=== PATIENT | male | born 1960 | race Caucasian/White ===

== ENCOUNTER 2018-10-04 04:02 | Outpatient (CLI) | payer BC, MEDICAID, SELFPAY ==
[2018-10-06 09:36] LABS: PSA, Diagnostic 0.3 ng/ml (0-3.5)
== END 2018-10-04 04:22 ==
PROVIDERS: PCP Family Medicine; Visit Provider Urology
DX: R39.89 Other symptoms and signs involving the genitourinary system (principal)
CPT/HCPCS: 36415; 84153

== ENCOUNTER 2019-10-02 02:59 | Outpatient (CLI) | payer BC, MEDICAID, SELFPAY ==
[2019-10-05 11:05] LABS: PSA, Diagnostic 0.3 ng/mL (0.0-4.5)
== END 2019-10-02 03:19 ==
PROVIDERS: PCP Family Medicine; Visit Provider Urology
DX: N42.89 Other specified disorders of prostate (principal)
CPT/HCPCS: 36415; 84153

== ENCOUNTER 2020-10-04 15:28 | Emergency (ER) | payer OTHER, BC, MEDICAID, SELFPAY ==
--- NOTE | 2020-10-04 15:30 | DI.CT_ITS ---
Exam(s) CT LOWER EXTREMITY RT CTA EXAM: CT LOWER EXTREMITY RT CTA CLINICAL HISTORY: severe torquing of R knee.. TECHNIQUE: Imaging Protocol: Axial CT angiography was performed with multi-slice acquisition and mu lti-planar and/or 3D reconstructions. CONTRAST MATERIAL: Intravenous: Omnipaque 350 Contrast volume:150 Oral: No COMPARISON: No exams were available for comparison FINDINGS: Vascular Structures: Abdomen: Distal aorta: No aneurysm. No dissection. No occlusion or significant stenosis. Pelvis: Iliac Arteries: No occlusion or significant stenosis. Common Femoral Arteries: No occlusion or significant stenosis. Lower extremities: Right lower extremity: Common Femoral: No evidence of occlusion or significant stenosis. No dissection. Superficial Femoral: No evidence of occlusion or significant stenosis. Popliteal: No evidence of occlusion or significant stenosis. No dissection. Knee Trifurcation: No evidence of occlusion or significant stenosis. Posterior Tibial: No evidence of stenosis. Dorsalis Pedis: No evidence of stenosis. Bladder: Symmetric distention, no gross wall thickening. Reproductive organs: Unremarkable. Visualized bowel: No obstruction or bowel wall thickening. Peritoneal cavity: No ascites, collection or mesenteric inflammatory response. Bones: Within normal limits. Degenerative changes in the visualized portions of the lumbosacral spine and the right knee. Small right knee joint effusion. Soft tissues: Subcutaneous varicose veins are seen bilaterally. Mild edema is seen in the soft tissu es anterior to the right knee. IMPRESSION: No evidence of vascular injury. RADIATION DOSE DELIVERED: 1,196.78mGy.cm Total DLP DATA REPOSITORY: All CT scans at this facility are submitted to the National Radiology Data Registry (NRDR) Dose Index Registry (DIR) with the [employer] (ACR). RADIATION OPTIMIZATION: All CT scans at this facility use at least one of these dose optimization te chniques: automated exposure control; mA and/or kV adjustment per patient size (includes targeted exa ms where dose is matched to clinical indication); or iterative reconstruction.
[2020-10-04 15:31] VITALS: BP 179/99; PULSE 96; RESP 20; TEMP 36.7; O2SAT 95
--- NOTE | 2020-10-04 16:03 | W.ED.GENAD ---
Discharge Plan Disposition Patient Disposition: HOME Condition: Good Discharge Details Clinical Impression: Muscle strain of right knee Primary Care Provider: Rocio Mao ED Provider: Nathanael Mancuso Home Meds and New Rx's Prescriptions: No Action No Known Home Meds RF: 0 Discharge Instructions Instructions: Muscle Strain (ED) Additional Instructions: At this time there is no evidence of fracture for your knee or rupture or damage to your vessels. I suspect you have notably strained and/or possibly torn your muscles in the back of your thigh. Please use the knee immobilizer as needed for pain. Please try to stay off of your knee and remain nonweightbearing as tolerated. If you feel that you can get by with just the crutches and an Dony wrap that would be reasonable as well. Please take a daily aspirin. Please use ice, Tylenol and Motrin to help control the pain. Please follow-up closely with the compliance review specialist. We have placed a referral, and they should contact you for the appointment. If you notice any worsening of your symptoms, or any new symptoms such as vomiting, diarrhea, fever, chills, shortness of breath, chest pain, numbness, weakness, or fainting , please return immediately to the emergency department for reevaluation. Please follow up with your primary care provider as soon as possible for reassessment and reevaluation. As always, it was a pleasure participating in your medical care today. Referrals: Rocio Mao MD [Primary Care Provider] - Ferny Healy MD [ [facility] STAFF PHYSICIAN] - Discharge Data Discharge Date/Time-TO BE ENTERED AT DEPARTURE: 10/04/20 18:24 Medical Decision Making This is a 60-year-old male with no significant past medical history who is brought by EMS for evaluation of right knee pain. Patient works at the local [employer], there was a rock that was stuck, and he had his foot wedged under that purposefully. It was not crushed. Unfortunately while his foot was under that he fell into a 6 foot hole causing him to do a split, and his foot remained stuck during the entire episode. The patient had to crawl out. He was unable to bear weight on his right leg. He is not certain if there was any dislocation. When he is not moving he has no pain in his knee, but he does have pain when bearing weight or flexing the knee. He denies any numbness or tingling. He is not on any blood thinners. He did get 1000 mg of Tylenol by EMS. No other complaints at this time. He denies any trauma anywhere else to his other legs, his groin, his chest abdomen or pelvis. Demonstrates a normal neurovascular exam for the right lower extremity, no evidence of trauma anywhere over the rest of the body aside for tenderness the posterior aspect of the right knee. Knee itself is stable to varus and valgus stressing as well as anterior and posterior drawer testing. No bony tenderness. With flexion of the knee the patient demonstrates notable pain in the posterior musculature of the thigh. With the notable amount of strain that was placed on the knee, I am concerned for a hyperextension injury potentially causing vascular injury. Differential is also high for partial muscle belly rupture of the right lower extremity posterior thigh. Will get CTA to evaluate for arterial injury. Patient does not want anything else for pain at this time. We will monitor closely and reassess. [address] scan has returned, and per radiology no signs of acute vascular injury or other acute process. Patient remained stable. Pain more tolerable now. Patient will be given a knee immobilizer to use as needed, and crutches. Suspect notable strain and potential partial tear of posterior thigh knee flexor group. Patient remains neurovascularly intact. Recommend conservative therapy to start with rest, ice, Tylenol, Motrin, and nonweightbearing with gradual transition to weightbearing as tolerated. Recommend that if he does not have improvement of his symptoms after 7 to 10 days of this he may need further evaluation by an compliance review specialist. We will place an orthopedic consult. At this time there is no evidence of tibial plateau fracture, arterial injury, neurovascular compromise of significance. I have extensively reviewed the treatment plan and discharge instructions with the patient and their family. I have addressed all patient concerns at this time. The patient and family was made aware of what symptoms to monitor for that would warrant a return to the emergency department. Discussed the plan with the patient and family, they demonstrate verbal understanding and agreement with our assessment and plan at this time. The documentation in this chart was dictated using [employer] dictation software. Please excuse any dictation errors. FINDINGS: Right femoral/popliteal arteries: No occlusion or significant stenosis. No dissection. Right infrapopliteal arteries: No occlusion or significant stenosis. Three vessel runoff. Superficial veins: There are subcutaneous varicose veins seen bilaterally. Bones/joints: Incidental osteoarthritis of the right knee. No fracture. Soft tissues: There is an mild subcutaneous edema anterior to the patellar tendon. No intramuscular hematoma. No significant soft tissue bruising. Mild knee effusion. IMPRESSION: No evidence of vascular injury. Dictated and Authenticated by: Justice Mcadams MD. HPI General Date/Time Provider Initiated Documentation: 10/04/20 15:28. HPI Narrative: This is a 60-year-old male with no significant past medical history who is brought by EMS for evaluation of right knee pain. Patient works at the local [employer], there was a rock that was stuck, and he had his foot wedged under that purposefully. It was not crushed. Unfortunately while his foot was under that he fell into a 6 foot hole causing him to do a split, and his foot remained stuck during the entire episode. The patient had to crawl out. He was unable to bear weight on his right leg. He is not certain if there was any dislocation. When he is not moving he has no pain in his knee, but he does have pain when bearing weight or flexing the knee. He denies any numbness or tingling. He is not on any blood thinners. He did get 1000 mg of Tylenol by EMS. No other complaints at this time. He denies any trauma anywhere else to his other legs, his groin, his chest abdomen or pelvis. Related Data Home Medications Medication Instructions Recorded Confirmed Unknown [No Known Home Meds] 10/09/18 10/04/20 Allergies Allergy/AdvReac Type Severity Reaction Status Date / Time No Known Allergies Allergy Unverified 10/04/20 15:36 General Stated Complaint: Trauma DOUG: 3 Review of Systems All systems reviewed & are unremarkable except as noted in HPI and below [facility] Family History Mother Diabetes Father Neoplasm PROSTATE Sister No problems noted. Sister No problems noted. Grandfather No problems noted. Grandfather Neoplasm Grandmother No problems noted. Grandmother No problems noted. Social History Smoking/Tobacco Use Status: Never Smoking risk assessment performed?: Yes Alcohol Intake: never Drug use: Never Substance use type: does not use Do you feel safe at home: Yes Do you feel safe in your relationship?: Yes Exam Narrative Exam Narrative: 1.Const: Well-nourished, Well-developed, appearing stated age 2.Eyes: PERRL, no conjunctival injection, and symmetrical lids. 3.ENT: Atraumatic external nose and ears. Moist MM. Neck: Symmetric, trachea midline, No thyromegaly. 4.CVS: +S1/S2, No murmurs or gallops. Peripheral pulses 2+ and equal in all extremities. Brisk capillary refill in all extremities. 5.RESP: Unlabored respiratory effort. Clear to auscultation bilaterally. No wheezes rales or rhonchi 6.GI: Soft, Nontender/Nondistended, No hepatosplenomegaly. No guarding or rebound. 7.MSK: Upper extremities demonstrate no signs of trauma, show normal movements, and have a normal vascular exam. Left lower extremity: Unremarkable, no tenderness, normal movement and strength for all directions of the hip knee and foot. Normal sensation. Normal neurovascular exam Right lower extremity: No pain or tenderness to the anterior lateral knee. No pain in the tibia or fibula. No pain or tenderness at the gastrocnemius. Foot demonstrates good movements and sensation throughout. Dorsalis pedis +2 bilaterally. Brisk capillary refill is present, normal sensation throughout the entirety of the right lower extremity. Patient does have some mild pain at the posterior medial aspect of the knee over the semitendinosis muscle and semimember gnosis muscle. Notable pain is elicited with flexion of the knee. And this pain is present in the posterior thigh. There does not appear to be as much tenderness over the medial aspect of the thigh with adduction. No clear evidence of displaced muscle bellies. 8.Skin: Warm, Dry. No rashes or lesions. 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 Sensation grossly intact, no focal neurologic deficits. 10.Psych: (AAO) x3. Appropriate mood and affect Course Vital Signs Vital signs: Vital Signs Temperature 36.7 C 10/04/20 15:31 Pulse 96 H 10/04/20 15:31 Respiratory Rate 20 10/04/20 15:31 Blood Pressure 179/99 H 10/04/20 15:31 Pulse Oximetry 95 10/04/20 15:31 Temperature 36.7 C 10/04/20 15:31 Temperature Source Skin 10/04/20 15:31 Pulse 96 H 10/04/20 15:31 Respiratory Rate 20 10/04/20 15:31 Respiratory Effort Non-Labored 10/04/20 15:39 Respiratory Depth Normal 10/04/20 15:39 Respiratory Pattern Normal 10/04/20 15:39 Blood Pressure 179/99 H 10/04/20 15:31 Blood Pressure Position Supine 10/04/20 15:31 Pulse Oximetry 95 10/04/20 15:31 Oxygen Delivery Method Room Air 10/04/20 15:31 Oxygen Flow Rate 0 10/04/20 15:31 Pain Level 1 10/04/20 15:31 Comment 10/04/20 15:31
[2020-10-04] MEDS: Omnipaque 350 MG/ML 100 ML BTL IV (17:08)
[2020-10-04] MEDS: Normal Saline - Diluent 50 ML VIAL IV ×2 (17:09→17:13)
[2020-10-04] MEDS: Omnipaque 350 MG/ML 50 ML BTL IJ (17:13)
--- NOTE | 2020-10-04 17:45 | DI.VRAD_ITS ---
PROCEDURE INFORMATION: Exam: CTA Right Lower Extremity With Contrast Exam date and time: 10/04/2020 3:42 PM Age: 60 years old Clinical indication: Other: Severe torquing of R knee . R/O art inj or post muscle rupture/injury TECHNIQUE: Imaging protocol: CTA images of the Right lower extremity with intravenous contrast using CT angiography protocol. 3D rendering (Not supervised by radiologist): MIP and/or 3D reconstructed images were created by the technologist. Total images: 1391 Radiation optimization: All CT scans at this facility use at least one of these dose optimization techniques: automated exposure control; mA and/or kV adjustment per patient size (includes targeted exams where dose is matched to clinical indication); or iterative reconstruction. Contrast material: OMNIPAQUE 350; Contrast volume: 150 ml; Contrast route: INTRAVENOUS (IV); COMPARISON: No relevant prior studies available. FINDINGS: Right femoral/popliteal arteries: No occlusion or significant stenosis. No dissection. Right infrapopliteal arteries: No occlusion or significant stenosis. Three vessel runoff. Superficial veins: There are subcutaneous varicose veins seen bilaterally. Bones/joints: Incidental osteoarthritis of the right knee. No fracture. Soft tissues: There is an mild subcutaneous edema anterior to the patellar tendon. No intramuscular hematoma. No significant soft tissue bruising. Mild knee effusion. IMPRESSION: No evidence of vascular injury. Dictated and Authenticated by: Justice Mcadams MD. Ordering:GEO Huffman MD
== END 2020-10-04 18:24 | disposition home or self-care (01) ==
PROVIDERS: Emergency Provider Student in an Organized Health Care Education/Training Program; PCP Family Medicine
DX: S76.311A Strain of muscle, fascia and tendon of the posterior muscle group at thigh level, right thigh, initial encounter (principal); X50.9XXA Other and unspecified overexertion or strenuous movements or postures, initial encounter; Y99.0 Civilian activity done for income or pay
CPT/HCPCS: 29505; 36415; 73706; 99285; 99284; J3490; Q9967

== ENCOUNTER 2020-10-10 02:39 | Outpatient (CLI) | payer BC, MEDICAID, SELFPAY ==
[2020-10-10 16:39] LABS: PSA, Diagnostic 0.6 ng/mL (0.0-4.5)
== END 2020-10-10 02:40 | disposition home or self-care (01) ==
LOC: LBO 02:39
PROVIDERS: PCP Family Medicine; Visit Provider Urology
DX: N42.89 Other specified disorders of prostate (principal); Z80.42 Family history of malignant neoplasm of prostate
CPT/HCPCS: 36415; 84153

== ENCOUNTER 2020-11-17 03:29 | Outpatient (CLI) | payer BC, MEDICAID, SELFPAY ==
[2020-11-17 08:49] LABS: ALT 24 U/L (16-63); AST 19 U/L (15-37); Albumin 4.3 g/dL (3.4-5.0); Alkaline Phosphatase 96 U/L (46-116); Anion Gap 10.9 mmol/L (3-11); BUN 16 mg/dL (7-18); Bilirubin, Total 1.1 mg/dL (0.2-1.0); CO2 27.1 mmol/L (21.0-32.0); Calcium 9.1 mg/dL (8.5-10.1); Calculated LDL 119 mg/dL (<100); Chloride 105 mmol/L (98-107); Cholesterol 176 mg/dL (<200); Glucose 106 mg/dL (74-106); HDL Cholesterol 38 mg/dL (40-60); Potassium 3.7 mmol/L (3.5-5.1); Sodium 143 mmol/L (136-145); Total Protein 7.7 g/dL (6.4-8.2); Triglyceride 98 mg/dL (<150)
== END 2020-11-17 03:30 | disposition home or self-care (01) ==
LOC: LBO 03:29
PROVIDERS: PCP Family Medicine; Visit Provider Family Medicine
DX: I10 Essential (primary) hypertension (principal)
CPT/HCPCS: 36415; 80053; 80061

== ENCOUNTER 2021-01-28 14:28 | Emergency (ER) | payer BC, MEDICAID, SELFPAY ==
--- NOTE | 2021-01-28 14:45 | DI.RAD_ITS ---
Exam(s) XR FOOT RT COMPLETE EXAM: XR FOOT RT COMPLETE CLINICAL HISTORY: pain and swelling big toe. TECHNIQUE: 2D digital imaging was performed of the right foot. Three images were obtained. AP, obl ique and lateral views were obtained. COMPARISON: No exams were available for comparison FINDINGS: BONES: No acute fracture is present. No bony destructive lesion is seen. JOINTS: No dislocation present. SOFT TISSUE: There is soft tissue swelling around the great toe. No radiopaque foreign bodies are id entified. IMPRESSION: Soft tissue swelling of the great toe. No acute fracture or dislocation. DATA REPOSITORY: RADIATION DOSE DELIVERED:
[2021-01-28 14:46] VITALS: BP 138/75; PULSE 105; RESP 16; TEMP 36.3; O2SAT 94
--- NOTE | 2021-01-28 14:53 | ED.GENADUL_ITS ---
Discharge Plan Disposition Patient Disposition: HOME Condition: Stable Discharge Details Clinical Impression: Foot pain, right Primary Care Provider: Rocio Mao ED Provider: Oscar Camacho Home Meds and New Rx's Prescriptions: New prednisone 20 mg tablet 60 mg PO DAILY 4 Days Qty: 12 RF: 0 amoxicillin-pot clavulanate [Augmentin] 875-125 mg tablet 1 tab PO BID Qty: 14 RF: 0 Continued hydrochlorothiazide 50 mg tablet 50 mg PO DAILY Qty: 90 RF: 2 Discharge Instructions Additional Instructions: Based on your location of pain and symptoms you likely are having a gout flare you are being treated for a possible skin infection follow up with your primary care provider within 1 week if not improving if you feel more ill, have fevers or severe worsening pain return to the emergency department Medical Decision Making 61 yo male with hx of htn comes in with right big toe pain without trauma and started Saturday. He states at night he has a throbbing sensation and walking makes the pain increase. No fevers or chills. He has a swollen right big toe, mild erythema of the toe without warmth, normal sensation and pulses and the redness is not warm to touch, no crepitus, no severe pain with palpation, and it blanches. Seems most consistent with gout, doubt septic joint given full range of motion of the toe. Will xray to evaluate for possible underlying stres fracture. Will likely treat as gout with possible cellulitis if xray negative. no acute findings on my read, patient remains stable. Will start on prednisone and augmentin. He is stable for outpatient management and advised to f/u with pcp, return precautions given Differential Diagnosis Differential Diagnosis: gout, cellulitis Imaging Data Radiologic Study: Attestation: I personally reviewed and interpreted this imaging study as follows: Imaging: X-Ray My impression: no acute findings HPI General Mode of arrival: ambulatory . Date/Time Provider Initiated Documentation: 01/28/21 14:31 . Limitations to Documentation: no limitations . Information obtained by: patient . History of Present Illness 61 year old M presents to the emergency department with the chief complaint of right big toe pain, described as moderate, Quality is described as aching, and is localized to the right and lower extremity. Patient reports no radiation. Patient started experiencing this day(s) (5) and it has been constant. Rest improves symptom(s), Patient notes no other symptoms.. Patient did receive the following treatments prior to arrival, none Related Data Home Medications Medication Instructions Recorded Confirmed hydrochlorothiazide 50 mg tablet 50 mg PO DAILY #90 tab 11/28/20 01/28/21 amoxicillin-pot clavulanate 1 tab PO BID #14 tab 01/28/21 [Augmentin] prednisone 60 mg PO DAILY 4 Days #12 tab 01/28/21 Previous Rx's Medication Instructions Recorded hydrochlorothiazide 50 mg tablet 50 mg PO DAILY #90 tab 11/28/20 amoxicillin-pot clavulanate 1 tab PO BID #14 tab 01/28/21 [Augmentin] prednisone 60 mg PO DAILY 4 Days #12 tab 01/28/21 Allergies Allergy/AdvReac Type Severity Reaction Status Date / Time No Known Allergies Allergy Verified 01/28/21 14:48 General Stated Complaint: GenMedical DOUG: 3 Review of Systems All systems reviewed & are unremarkable except as noted in HPI and below Constitutional Constitutional: Denies chills, Denies fever(s) and Denies weakness Cardiovascular Cardiovascular: Denies chest pain and Denies dyspnea Respiratory Respiratory: Denies cough and Denies dyspnea Gastrointestinal Gastrointestinal: Denies abdominal pain, Denies nausea and Denies vomiting Genitourinary Genitourinary: Denies dysuria Musculoskeletal Musculoskeletal: Denies joint swelling Neurologic Neurologic: Denies weakness [facility] Medical History (Updated 01/28/21 @ 15:36 by Oscar Camacho MD) Family history of prostate cancer in father Hypertension Metabolic syndrome X (07/28/07) Obesity Varicose veins of lower extremity Family History Mother Diabetes Father Neoplasm PROSTATE Sister No problems noted. Sister No problems noted. Grandfather No problems noted. Grandfather Neoplasm Grandmother No problems noted. Grandmother No problems noted. Social History Smoking/Tobacco Use Status: Never Smoking risk assessment performed?: Yes Alcohol Intake: never Drug use: Never Substance use type: does not use Do you feel safe at home: Yes Do you feel safe in your relationship?: Yes Exam Const General: no acute distress Orientation: alert HENMT Head: normal to inspection Ears: external ears normal General nose exam: external nose normal Mouth: moist mucous membranes Eyes General: appearance normal, both eyes and all related structures Neck Neck: normal visual inspection Resp Effort & Inspection: normal respiratory effort and able to speak in complete sentences Cardio Rate: regular rate Skin General skin exam: elasticity normal Neuro General: patient alert and patient oriented x3 Extrem General: full ROM and capillary refill normal Psych Mental Status: mental status grossly normal Course Vital Signs Vital signs: Vital Signs Temperature 36.3 C L 01/28/21 14:46 Pulse 105 H 01/28/21 14:46 Respiratory Rate 16 01/28/21 14:46 Blood Pressure 138/75 01/28/21 14:46 Pulse Oximetry 94 01/28/21 14:46 Temperature 36.3 C L 01/28/21 14:46 Pulse 105 H 01/28/21 14:46 Respiratory Rate 16 01/28/21 14:46 Respiratory Effort Non-Labored 01/28/21 14:47 Blood Pressure 138/75 01/28/21 14:46 Blood Pressure Position Sitting 01/28/21 14:46 Pulse Oximetry 94 01/28/21 14:46 Oxygen Delivery Method Room Air 01/28/21 14:46 Oxygen Flow Rate 0 01/28/21 14:46 Pain Level 7 01/28/21 14:46
[2021-01-28] MEDS: predniSONE 20 MG TAB 60 MG PO (15:49)
[2021-01-28] MEDS: Amoxicillin 875/Clav. 125 TAB PO (15:49)
--- NOTE | 2021-01-28 16:19 | DI.VRAD_ITS ---
PROCEDURE INFORMATION: Exam: XR Right Foot Exam date and time: 01/28/2021 2:54 PM Age: 61 years old Clinical indication: Pain; Foot; Right TECHNIQUE: Imaging protocol: XR Right foot. Views: 3 or more views. COMPARISON: CT LOWER EXTREMITY RT CTA 12/02/2020 16:38 FINDINGS: Bones/joints: No fracture or dislocation is apparent. There are no significant arthropathic changes. Soft tissues: Moderate soft tissue swelling is seen over the dorsum of the forefoot. IMPRESSION: Soft tissue swelling with no associated osseous abnormality. Dictated and Authenticated by: Justice Snider MD. Ordering:MARK Moore MD
== END 2021-01-28 15:58 | disposition home or self-care (01) ==
PROVIDERS: Emergency Provider Emergency Medicine; PCP Family Medicine
DX: M79.674 Pain in right toe(s) (principal)
CPT/HCPCS: 99283; 73630; J7512

== ENCOUNTER 2021-08-21 04:57 | Outpatient (CLI) | payer MEDICAID, SELFPAY ==
[2021-08-21 12:31] LABS: BUN 22 mg/dL (7-18); Calcium 8.7 mg/dL (8.5-10.1); Chloride 106 mmol/L (98-107); Glucose 92 mg/dL (74-106); Sodium 141 mmol/L (136-145); Uric Acid 9.1 mg/dL (3.5-7.2)
== END 2021-08-21 04:58 | disposition home or self-care (01) ==
PROVIDERS: PCP Family Medicine; Visit Provider Family Medicine
DX: M10.9 Gout, unspecified (principal); I10 Essential (primary) hypertension
CPT/HCPCS: 36415; 80048; 84550

== ENCOUNTER 2021-10-10 02:38 | Outpatient (CLI) | payer MEDICAID, SELFPAY ==
[2021-10-10 23:18] LABS: PSA, Screening 0.4 ng/mL (<=4.5)
== END 2021-10-10 02:39 | disposition home or self-care (01) ==
LOC: LOS 02:38
PROVIDERS: Nurse Practitioner Gerontology; PCP Nurse Practitioner Family; Visit Provider Family Medicine
DX: Z80.42 Family history of malignant neoplasm of prostate (principal); Z12.5 Encounter for screening for malignant neoplasm of prostate
CPT/HCPCS: 36415; 84153

== ENCOUNTER 2022-10-10 03:14 | Outpatient (CLI) | payer BC, MEDICAID, SELFPAY ==
[2022-10-10 18:27] LABS: PSA, Screening 0.4 ng/mL (<=4.5)
== END 2022-10-10 03:15 | disposition home or self-care (01) ==
LOC: LBO 03:14
PROVIDERS: PCP Nurse Practitioner Family; Visit Provider Nurse Practitioner Gerontology
DX: Z80.42 Family history of malignant neoplasm of prostate (principal); Z12.5 Encounter for screening for malignant neoplasm of prostate
CPT/HCPCS: 36415; 84153

== ENCOUNTER 2023-04-25 00:45 | Outpatient (CLI) | payer MEDICAID, SELFPAY ==
[2023-04-25 12:39] LABS: Hemoglobin A1C 5.4 % (<5.7)
[2023-04-25 12:48] LABS: Calculated LDL 115 mg/dL (<100); Cholesterol 173 mg/dL (<200); Estimated GFR 84.05 (mL/min/1.73m2); HDL Cholesterol 45 mg/dL (40-60); Potassium 4.2 mmol/L (3.5-5.1); Triglyceride 68 mg/dL (<150)
[2023-04-25 12:57] LABS: Uric Acid 7.9 mg/dL (3.5-7.2)
== END 2023-04-25 00:46 | disposition home or self-care (01) ==
LOC: LOS 00:46
PROVIDERS: PCP Nurse Practitioner Family; Visit Provider Nurse Practitioner Family
DX: I10 Essential (primary) hypertension (principal); M10.9 Gout, unspecified; Z13.220 Encounter for screening for lipoid disorders; Z13.1 Encounter for screening for diabetes mellitus
CPT/HCPCS: 36415; 80061; 82565; 83036; 84132; 84550

== ENCOUNTER 2023-10-09 01:32 | Outpatient (CLI) | payer MEDICAID, SELFPAY ==
[2023-10-09 18:00] LABS: PSA, Screening 0.5 ng/mL (<=4.5)
== END 2023-10-09 01:33 | disposition home or self-care (01) ==
LOC: LBO 01:32
PROVIDERS: PCP Nurse Practitioner Family; Visit Provider Nurse Practitioner Gerontology
DX: N42.9 Disorder of prostate, unspecified (principal); Z80.42 Family history of malignant neoplasm of prostate
CPT/HCPCS: 36415; 84153

== ENCOUNTER 2024-05-22 01:48 | Outpatient (CLI) | payer MEDICARE, SELFPAY ==
[2024-05-22 13:15] LABS: Calculated LDL 134 mg/dL (<100); Cholesterol 208 mg/dL (<200); Estimated GFR 83.52 (mL/min/1.73m2); HDL Cholesterol 43 mg/dL (40-60); Triglyceride 155 mg/dL (<150)
== END 2024-05-22 01:49 | disposition home or self-care (01) ==
PROVIDERS: PCP Nurse Practitioner Family; Visit Provider Nurse Practitioner Family
DX: I10 Essential (primary) hypertension (principal); Z13.6 Encounter for screening for cardiovascular disorders
CPT/HCPCS: 36415; 80061; 82565; 84132

== ENCOUNTER 2024-10-07 05:05 | Outpatient (CLI) | payer MEDICARE, SELFPAY ==
[2024-10-07 18:00] LABS: PSA, Screening 0.4 ng/mL (<=4.5)
== END 2024-10-07 05:06 | disposition home or self-care (01) ==
LOC: LBO 05:06
PROVIDERS: PCP Nurse Practitioner Family; Visit Provider Nurse Practitioner Gerontology
DX: Z80.42 Family history of malignant neoplasm of prostate (principal); N42.9 Disorder of prostate, unspecified
CPT/HCPCS: 36415; 84153

== ENCOUNTER → 2024-10-15 08:07 | Outpatient (BNVA) | payer BC, MEDICARE, SELFPAY | PROVIDERS: PCP Nurse Practitioner Family; Visit Provider Nurse Practitioner Gerontology | CPT/HCPCS: 99213 ==